=== PATIENT | male | born 1995 | race Hispanic/Latino ===

== ENCOUNTER 2018-08-29 22:21 | Emergency (ER) | payer OTHER | END 2018-08-30 02:14 | disposition home or self-care (01) | LOC: M ED 08-30 02:14 | DX: S05.11XA Contusion of eyeball and orbital tissues, right eye, initial encounter (principal); T76.11XA Adult physical abuse, suspected, initial encounter; Y92.149 Unspecified place in prison as the place of occurrence of the external cause | CPT/HCPCS: 70450 ==